=== PATIENT | female | born 1955 | race Caucasian/White ===

== ENCOUNTER 2017-09-06 05:41 | Day surgery (SDC) | payer OTHER ==
[~2017-09-06] VITALS: Ht 162.6 cm; Wt 80.0 kg
[~2017-09-06 05:41] MED LIST: APIX5TAB PO; CYCLOPENTOLATE HCL 2% 2 ML OPHTHALMIC SOLUTION ONE; KETOROLAC TROMETHAMINE 0.5% 5 ML OPHTHALMIC SOLUTION ONE; MOXIFLOXACIN HCL 0.5% 3 ML OPHTHALMIC SOLUTION ONE; PHENYLEPHRINE HCL 2.5% 2 ML OPHTHALMIC SOLUTION ONE; RINGERS SOLUTION,LACTATED 500 ML IV ONE; TETRACAINE HCL/PF 0.5% 4 ML OPHTHALMIC SOLUTION ONE
[2017-09-06] MEDS ORDERED: FentaNYL CITRATE-PF 100 MCG/2 ML VIAL IVP ONE (05:42)
[2017-09-06] MEDS ORDERED: HYALURONATE SODIUM 12 MG/ML 0.8 ML SYRINGE IO ONE (05:42)
[2017-09-06] MEDS ORDERED: EPINEPHrine 1:1,000 [1 MG/ML] AMP IM ONE (05:42)
[2017-09-06] MEDS ORDERED: TETRACAINE HCL/PF 0.5% 4 ML OPHTHALMIC SOLUTION OS ONE (05:42)
[2017-09-06] MEDS ORDERED: LIDOCAINE HCL/PF 1% 2 ML VIAL INJ ONE (05:42)
[2017-09-06] MEDS ORDERED: POVIDONE-IODINE 10% 15 ML SOLUTION UD TP ONE (05:42)
[2017-09-06] MEDS ORDERED: PILOCARPINE HCL 4% 15 ML OPHTHALMIC SOLUTION OS ONE (05:42)
[2017-09-06] MEDS ORDERED: MIDAZOLAM HCL 2 MG/2 ML VIAL IVP ONE (05:42)
[2017-09-06] MEDS ORDERED: ACETAMINOPHEN 325 MG TABLET PO PRN (06:00)
[2017-09-06] MEDS ORDERED: RINGERS SOLUTION,LACTATED 500 ML IV ONE (06:00)
[2017-09-06] MEDS: PHENYLEPHRINE HCL 2.5% 2 ML OPHTHALMIC SOLUTION OS SCH ×3 (06:36→06:49)
[2017-09-06] MEDS: KETOROLAC TROMETHAMINE 0.5% 5 ML OPHTHALMIC SOLUTION OS SCH ×3 (06:36→06:49)
[2017-09-06] MEDS: CYCLOPENTOLATE HCL 2% 2 ML OPHTHALMIC SOLUTION OS SCH ×3 (06:36→06:49)
[2017-09-06] MEDS: TETRACAINE HCL/PF 0.5% 4 ML OPHTHALMIC SOLUTION OS SCH ×3 (06:36→06:49)
[2017-09-06] MEDS: MOXIFLOXACIN HCL 0.5% 3 ML OPHTHALMIC SOLUTION OS SCH ×3 (06:36→06:49)
== END 2017-09-06 08:45 | disposition home or self-care (01) ==
LOC: SURGERY 05:41
PROVIDERS: ATTEND Ophthalmology
DX: H25.12 Age-related nuclear cataract, left eye (principal); Z72.89 Other problems related to lifestyle; Z86.718 Personal history of other venous thrombosis and embolism; Z79.01 Long term (current) use of anticoagulants
CPT/HCPCS: 66984; 93005; C1780; J2250; J3010; J7120

== ENCOUNTER 2017-10-18 05:31 | Day surgery (SDC) | payer OTHER ==
[~2017-10-18] VITALS: Ht 165.1 cm; Wt 79.5 kg
[~2017-10-18 05:31] MED LIST changes: -CYCLOPENTOLATE HCL 2% 2 ML OPHTHALMIC SOLUTION ONE; -KETOROLAC TROMETHAMINE 0.5% 5 ML OPHTHALMIC SOLUTION ONE; -MOXIFLOXACIN HCL 0.5% 3 ML OPHTHALMIC SOLUTION ONE; -PHENYLEPHRINE HCL 2.5% 2 ML OPHTHALMIC SOLUTION ONE; -RINGERS SOLUTION,LACTATED 500 ML IV ONE; -TETRACAINE HCL/PF 0.5% 4 ML OPHTHALMIC SOLUTION ONE
[2017-10-18] MEDS ORDERED: RINGERS SOLUTION,LACTATED 500 ML IV ONE ×2 (05:34→06:30)
[2017-10-18] MEDS ORDERED: MOXIFLOXACIN HCL 0.5% 3 ML OPHTHALMIC SOLUTION ONE (05:34)
[2017-10-18] MEDS ORDERED: CYCLOPENTOLATE HCL 2% 2 ML OPHTHALMIC SOLUTION ONE (05:35)
[2017-10-18] MEDS ORDERED: DICLOFENAC SODIUM 0.1% 2.5 ML OPHTHALMIC SOLUTION ONE (05:35)
[2017-10-18] MEDS ORDERED: PHENYLEPHRINE HCL 2.5% 2 ML OPHTHALMIC SOLUTION ONE (05:35)
[2017-10-18] MEDS ORDERED: TETRACAINE HCL/PF 0.5% 4 ML OPHTHALMIC SOLUTION ONE (05:36)
[2017-10-18] MEDS: PHENYLEPHRINE HCL 2.5% 2 ML OPHTHALMIC SOLUTION OD SCH ×3 (06:32→06:45)
[2017-10-18] MEDS: DICLOFENAC SODIUM 0.1% 2.5 ML OPHTHALMIC SOLUTION OD SCH ×3 (06:32→06:45)
[2017-10-18] MEDS: TETRACAINE HCL/PF 0.5% 4 ML OPHTHALMIC SOLUTION OD SCH ×3 (06:32→06:45)
[2017-10-18] MEDS: MOXIFLOXACIN HCL 0.5% 3 ML OPHTHALMIC SOLUTION OD SCH ×3 (06:32→06:45)
[2017-10-18] MEDS: CYCLOPENTOLATE HCL 2% 2 ML OPHTHALMIC SOLUTION OD SCH ×3 (06:32→06:45)
[2017-10-18] MEDS ORDERED: ACETAMINOPHEN 325 MG TABLET PO PRN (07:30)
[2017-10-18] MEDS ORDERED: MIDAZOLAM HCL 2 MG/2 ML VIAL IVP ONE (12:00)
== END 2017-10-18 08:20 | disposition home or self-care (01) ==
LOC: SURGERY 05:31
PROVIDERS: ATTEND Ophthalmology
DX: H25.11 Age-related nuclear cataract, right eye (principal); G47.30 Sleep apnea, unspecified; Z72.89 Other problems related to lifestyle; Z79.01 Long term (current) use of anticoagulants; Z98.42 Cataract extraction status, left eye; Z86.718 Personal history of other venous thrombosis and embolism
CPT/HCPCS: 66984; C1780; J2250; J7120

== ENCOUNTER 2018-04-27 14:14 | Emergency (ER) | payer MEDICARE, OTHER ==
[~2018-04-27] VITALS: Ht 165.1 cm; Wt 75.0 kg
[2018-04-27] MEDS ORDERED: KETOROLAC TROMETHAMINE 30 MG/ML VIAL IM ONE (15:00)
[2018-04-27 15:29] VITALS: BP 131/79
== END 2018-04-27 16:15 | disposition home or self-care (01) ==
LOC: EMS 14:14
DX: M25.552 Pain in left hip (principal); R03.0 Elevated blood-pressure reading, without diagnosis of hypertension
CPT/HCPCS: 96372; 99283; J1885